=== PATIENT | male | born 1970 ===

== ENCOUNTER 2021-01-08 09:08 | Outpatient (CLI) | payer OTHER | END 2021-01-08 09:56 | disposition home or self-care (01) | LOC: OFIC 805 09:08 | PROVIDERS: ATTEND Otolaryngology Otology & Neurotology | DX: G47.33 Obstructive sleep apnea (adult) (pediatric) (principal); J34.2 Deviated nasal septum; J30.89 Other allergic rhinitis; H10.13 Acute atopic conjunctivitis, bilateral ==